=== PATIENT | female | born 2000 | race Caucasian/White ===

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

== ENCOUNTER 2021-01-18 22:01 | Emergency (ER) | payer OTHER ==
[~2021-01-18] VITALS: Ht 156.2 cm; Wt 62.0 kg
[~2021-01-18 22:01] MED LIST changes: +CLIN300C9 PO
[2021-01-18 22:29] LABS: BILIRUBIN,URINE NEGATIVE (NEG); CLARITY,URINE CLEAR; COLOR,URINE YELLOW; NITRITE,URINE NEGATIVE (NEG); PH,URINE 6.5 (<5.0-8.0); PROTEIN,URINE NEGATIVE (NEG-TRACE); UROBILINOGEN,URINE 0.2 mg/dL (0.2 mg/dL)
--- NOTE | 2021-01-18 22:32 | PHYS DOC ---
Past Medical History Past Medical History: No Pertinent History Past Surgical History: No Surgical History Additional Past Surgical Histo: SBO Smoking Status: Never Smoker Alcohol Use: None Drug Use: None General Adult EDM: Chief Complaint: FLANK PAIN HPI: HPI: Patient is a 20-year-old female presenting via POV for abdominal pain. This started without any inciting event, exposure, ingestion or trauma. Reports she has history of constipation, has not had a normal bowel movement in last 2 weeks. Reports in last 48 hours to worsen development of left flank pain that radiates to suprapubic region. Also reports dysuria and is concerned she has a urinary tract infection today. 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 She is prone to small bowel obstructions and has been hospitalized for these in the past. Review of Systems: Review of Systems: Fourteen body systems of review of systems have been reviewed. See HPI for pertinent positives and negative responses, other perez all other systems are negative, non-pertinent or non-contributory Heart Score: C/O Chest Pain: No HEART Score for Chest Pain: HEART Score for Chest Pain Response (Comments) Value History Slighlty/Non-Suspicious 0 Age < 45 0 Risk Factors No Risk Factors 0 Total 0 Risk Factors: Risk Factors: DM, Current or recent (<one month) smoker, HTN, HLP, family history of CAD, obesity. Risk Scores: Score 0 - 3: 2.5% MACE over next 6 weeks - Discharge Home Score 4 - 6: 20.3% MACE over next 6 weeks - Admit for Clinical Observation Score 7 - 10: 72.7% MACE over next 6 weeks - Early Invasive Strategies Allergies: Allergies: Allergies Coded Allergies Type Severity Reaction Last Updated Verified No Known Drug Allergies 08/01/17 No Physical Exam: PE: Constitutional: Well developed, well nourished, no acute distress, non-toxic appearance. HENT: Normocephalic, atraumatic, bilateral external ears normal, oropharynx moist, no oral exudates, nose normal. Eyes: PERRLA, EOMI, conjunctiva normal, no discharge. Neck: Normal range of motion, no tenderness, supple, no stridor. Cardiovascular: Heart rate regular, sinus rhythm, no murmurs rubs or gallops Lungs & Thorax: Bilateral breath sounds clear to auscultation Abdomen: Bowel sounds normal, soft, tenderness present to left flank radiating to left suprapubic region, no masses, no pulsatile masses. Nonsurgical abdomen, no peritoneal signs Skin: Warm, dry, no erythema, no rash. Back: No tenderness, no CVA tenderness. Extremities: No tenderness, no cyanosis, no clubbing, ROM intact, no edema. Neurologic: Alert and oriented X 3, grossly normal motor & sensory function, no focal deficits noted. Psychologic: Affect normal, judgement normal, mood normal. Current Patient Data: Labs: Laboratory Tests Test 01/18/21 22:05 01/18/21 22:19 01/18/21 22:38 Urine Collection Type Unknown Urine Color Yellow Urine Clarity Clear Urine pH 6.5 Urine Specific Henderson 1.015 Urine Protein Negative mg/dL Urine Glucose (UA) Negative mg/dL Urine Ketones (Stick) Negative mg/dL Urine Blood Negative Urine Nitrite Negative Urine Bilirubin Negative Urine Urobilinogen Dipstick 0.2 mg/dL Urine Leukocyte Esterase Moderate Urine RBC 1-2 /HPF Urine WBC 20-40 /HPF Urine Squamous Epithelial Cells Mod /LPF Urine Bacteria Many /HPF Urine Mucus Mod /LPF Bedside Urine HCG, Qualitative Hcg negative White Blood Count 12.9 x10^3/uL Red Blood Count 4.88 x10^6/uL Hemoglobin 15.1 g/dL Hematocrit 43.8 % Mean Corpuscular Volume 90 fL Mean Corpuscular Hemoglobin 31 pg Mean Corpuscular Hemoglobin Concent 34 g/dL Red Cell Distribution Width 12.0 % Platelet Count 354 x10^3/uL Neutrophils (%) (Auto) 78 % Lymphocytes (%) (Auto) 15 % Monocytes (%) (Auto) 6 % Eosinophils (%) (Auto) 1 % Basophils (%) (Auto) 1 % Neutrophils # (Auto) 10.1 x10^3/uL Lymphocytes # (Auto) 2.0 x10^3/uL Monocytes # (Auto) 0.7 x10^3/uL Eosinophils # (Auto) 0.1 x10^3/uL Basophils # (Auto) 0.1 x10^3/uL Sodium Level 140 mmol/L Potassium Level 3.8 mmol/L Chloride Level 103 mmol/L Carbon Dioxide Level 24 mmol/L Anion Gap 13 Blood Urea Nitrogen 7 mg/dL Creatinine 0.9 mg/dL Estimated GFR (Cockcroft-Gault) 80.7 BUN/Creatinine Ratio 8 Glucose Level 91 mg/dL Lactic Acid Level 1.2 mmol/L Calcium Level 9.3 mg/dL Total Bilirubin 0.4 mg/dL Aspartate Amino Transf (AST/SGOT) 17 U/L Alanine Aminotransferase (ALT/SGPT) 24 U/L Alkaline Phosphatase 100 U/L Total Protein 8.2 g/dL Albumin 4.6 g/dL Albumin/Globulin Ratio 1.3 Current Medications Medications (Trade) Dose Ordered Sig/Astrid Route PRN Reason Start Time Stop Time Status Last Admin Dose Admin Sodium Chloride 1,000 ml @ 30 mls/hr 1X ONCE IV 01/18/21 23:00 01/19/21 00:30 DC 01/18/21 22:48 Nitrofurantoin Macrocrystals (Macrobid) 100 mg 1X ONCE PO 01/18/21 23:45 01/18/21 23:46 DC 01/18/21 23:39 Vital Signs: Vital Signs Date Time Temp Pulse Resp B/P (MAP) Pulse Ox O2 Delivery O2 Flow Rate FiO2 01/18/21 22:51 98.0 110 18 125/79 (94) 97 Room Air 98.0 Vital Signs Date Time Temp Pulse Resp B/P (MAP) Pulse Ox O2 Delivery O2 Flow Rate FiO2 01/19/21 00:21 70 21 114/73 (87) 98 Room Air 01/18/21 22:51 98.0 98.0 EKG: EKG: [] Radiology/Procedures: Radiology/Procedures: Study: CT abdomen/pelvis without intravenous contrast Indication: Left flank pain. Comparison: None. Technique: Helical CT imaging performed of the abdomen and pelvis without the use of intravenous contrast. Sagittal and coronal reformats were obtained. One or more of the following individualized dose reduction techniques were util ized for this examination: 1. Automated exposure control 2. Adjustment of the mA and/or kV according to patient size 3. Use of iterative reconstruction technique. Findings: Inherently limited evaluation without intravenous contrast. Unremarkable visualized lungs and mediastinal contents. No significant abnormality of the liver, gallbladder, spleen, pancreas or adrenal glands. At least three intrarenal stones on both the right and left which are punctate in size. No hydronephrosis on the right or left. No stone is seen within either ureter or within the urinary bladder. Bladder wall thickness is within normal limits given under distention. Unremarkable uterus and ovaries. Malrotated bowel. No bowel obstruction. Mild volume colonic stool burden. No i nflammatory changes at the expected location of the appendix. Unremarkable stomach. Nonaneurysmal aorta. No lymphadenopathy. No free fluid or pneumoperitoneum. Intact osseous structures. Impression: At least three punctate intrarenal stones on both the right and left but no stone is seen within the ureters or urinary bladder and there is no collecting system dilatation. Electronically signed by: JUANA MACK MD (01/18/2021 11:02 PM) [facility] Course & Med Decision Making: Course & Med Decision Making Vital signs stable. HPI concerning for kidney stone versus small bowel obstruction versus other and high risk patient. Physical exam nonconcerning for emergent or surgical findings ER work-up obtained, nonconcerning for emergent or surgical issues. Discussed most likely diagnosis of UTI, kidney stones intrarenal that are likely noncontributory to presenting symptoms and constipation that is a known issue for patient Discussed need for treatment of UTI, joint decision among all to treat with Macrobid. Patient given x1 dose of this while in ER and tolerated well, subsequent prescription written on discharge Educated patient extensively on supportive care practices for constipation such as increasing p.o. fluid, home fiber intake, exercise etc. Patient has good access to care with PCP, advised her to contact them next business day to schedule ER follow-up regarding today's visit. Strict return precautions were discussed with good understanding by patient and mother who was present, all questions and concerns addressed prior to your departure Steve Disclaimer: Steve Disclaimer: This electronic medical record was generated, in whole or in part, using a voice recognition dictation system. Departure Departure Impression: Primary Impression: UTI (urinary tract infection) Additional Impression: Constipation Disposition: 01 HOME / SELF CARE / HOMELESS Condition: IMPROVED Referrals: JOSÉ LUIS WOLFE APRN (PCP) Patient Instructions: Constipation, Adult, Urinary Tract Infection Additional Instructions: You were seen for a urinary tract infection. Please continue to take the antibiotics as prescribed. It was also disclosed that your generalized/nonspecific abdominal pain is likely related to constipation. You are educated on supportive care practices for this extensively such as increasing p.o. fluid intake, ingesting at least 10 g of fiber daily and increasing daily physical exercise. Please contact your primary care physician first thing tomorrow to review need for close outpatient follow-up to ensure symptomatic improvement. You should return to the ED if you develop worsening pain, fever, flank pain, or any other new or concerning symptoms. Follow up with primary care for further management if ongoing symptoms. Scripts Nitrofurantoin Monohyd/M-Cryst (MACROBID 100 MG CAPSULE) 100 Mg Capsule 1 CAP PO BID for 5 Days, #9 CAP 0 Refills Prov: LESLEE RAYA DO 01/18/21 LESLEE RAYA DO January 18, 2021 22:32
[2021-01-18 22:35] LABS: BACTERIA,URINE MANY /HPF (0-FEW); WBC,URINE 20-40 /HPF (0-4)
[2021-01-18 22:48] LABS: BASO # 0.1 x10^3/uL (0.0-0.2); BASO % 1 % (0-3); EOS # 0.1 x10^3/uL (0.0-0.7); EOS % 1 % (0-3); HEMATOCRIT 43.8 % (36.0-47.0); HEMOGLOBIN 15.1 g/dL (12.0-15.5); LYMPH % 15 % (24-48); MEAN CORPUSCULAR HEMOGLOBIN 31 pg (25-35); MEAN CORPUSCULAR HGB CONC 34 g/dL (31-37); MEAN CORPUSCULAR VOLUME 90 fL (79-100); MONO # 0.7 x10^3/uL (0.0-1.1); MONO % 6 % (0-9); NEUT # 10.1 x10^3/uL (1.8-7.7); NEUT % 78 % (31-73); PLATELET COUNT 354 x10^3/uL (140-400); RED BLOOD COUNT 4.88 x10^6/uL (3.50-5.40); WHITE BLOOD COUNT 12.9 x10^3/uL (4.0-11.0)
[2021-01-18 22:59] LABS: CALCIUM 9.3 mg/dL (8.5-10.1); CREATININE 0.9 mg/dL (0.6-1.0); GFR 80.7; POTASSIUM 3.8 mmol/L (3.5-5.1)
[2021-01-18] MEDS ORDERED: IV NORMAL SALINE 1000ML BAG 1,000 ML IV ONE (23:00)
[2021-01-18 23:05] LABS: ALBUMIN 4.6 g/dL (3.4-5.0); ALBUMIN/GLOBULIN RATIO 1.3 (1.0-1.7); TOTAL BILIRUBIN 0.4 mg/dL (0.2-1.0); TOTAL PROTEIN 8.2 g/dL (6.4-8.2)
--- NOTE | 2021-01-18 23:05 | RAD ---
Study: CT abdomen/pelvis without intravenous contrast Indication: Left flank pain. Comparison: None. Technique: Helical CT imaging performed of the abdomen and pelvis without the use of intravenous cont rast. Sagittal and coronal reformats were obtained. One or more of the following individualized dose reduction techniques were utilized for this examinat ion: 1. Automated exposure control 2. Adjustment of the mA and/or kV according to patient size 3. Use of iterative reconstruction technique. Findings: Inherently limited evaluation without intravenous contrast. Unremarkable visualized lungs and mediastinal contents. No significant abnormality of the liver, gallbladder, spleen, pancreas or adrenal glands. At least three intrarenal stones on both the right and left which are punctate in size. No hydronephr osis on the right or left. No stone is seen within either ureter or within the urinary bladder. Bladd er wall thickness is within normal limits given under distention. Unremarkable uterus and ovaries. Malrotated bowel. No bowel obstruction. Mild volume colonic stool burden. No inflammatory changes at the expected location of the appendix. Unremarkable stomach. Nonaneurysmal aorta. No lymphadenopathy. No free fluid or pneumoperitoneum. Intact osseous structures. Impression: At least three punctate intrarenal stones on both the right and left but no stone is seen within the ureters or urinary bladder and there is no collecting system dilatation. Electronically signed by: JUANA MACK MD (01/18/2021 11:02 PM) [facility]
[2021-01-18] MEDS ORDERED: NITR100C62 PO (23:27)
[2021-01-18] MEDS ORDERED: NITROFURANTOIN MONOHYD/M-CRYST 100 MG CAPSULE. PO ONE (23:45)
[2021-01-19 00:21] VITALS: BP 114/73
== END 2021-01-19 00:25 | disposition home or self-care (01) ==
LOC: ER 22:01
DX: N39.0 Urinary tract infection, site not specified (principal); K59.00 Constipation, unspecified
CPT/HCPCS: 36415; 74176; 80053; 81001; 81025; 83605; 85025; 87086; 99284; J7030